=== PATIENT | female | born 1945 | race Caucasian/White ===

== ENCOUNTER 2020-08-21 07:36 | Day surgery (SDC) | payer MEDICARE, OTHER ==
[~2020-08-21] VITALS: Ht 167.6 cm; Wt 84.8 kg
[~2020-08-21 07:36] MED LIST: FERROUS SULFAT325 MG PO; NORVASC5 MG PO
--- NOTE | 2020-08-21 10:38 | NUR ---
08/21/20 1038 Gracie Guevara 1032 PATIENT ARRIVES TO PACU AWAKE BUT DROWSY. DENIES PAIN OR NAUSEA. RESP EVEN AND UNLABORED, NC AT 3 LITERS.
--- NOTE | 2020-08-22 08:49 | OR ---
[facility] [address], [place] [address] Signed DATE OF OPERATION: 08/21/2020 SURGEON: Sangeetha Saldana MD PREOPERATIVE DIAGNOSES: 1. Iron-deficiency anemia (hemoglobin 6.1). 2. Father with stomach cancer. 3. Brother with colon cancer. POSTOPERATIVE DIAGNOSES: 1. Moderate diffuse hemorrhagic gastritis. 2. Small hiatal hernia. 3. 4 mm polyps, proximal right colon, 55 cm, 20 cm, 18 cm, 15 cm and 8 cm (x2). PROCEDURES: 1. EGD with CLOtest and biopsies of the antrum and body of stomach. 2. Colonoscopy with hot biopsy. ESTIMATED BLOOD LOSS: None. INDICATIONS: Leonor is a 75-year-old female, asked to see me for upper and lower endoscopy. She had a barium enema back in her 60s and apparently that was fine. She really does not have any upper or lower GI complaints. However, she was feeling tired and was having to rest every 15 minutes. She had been to her primary care provider and found to be anemic. Her hemoglobin was low at 6.1. Mean cell volume was low at 56. She therefore received 2 units of packed red blood cells. She is now feeling much better. She has been taking iron tablets. She also told me her brother was diagnosed with colon cancer. Her father also had stomach cancer. In the office, I gave Leonor a pamphlet on both upper and lower endoscopy. We reviewed the nature of the two tests along with the risks including, but not limited to gas bloating, crampy abdominal pain, bleeding, perforation requiring surgery, and missed diagnosis. We also reviewed the need for IV conscious sedation. She had expressed understanding and wished to proceed. DESCRIPTION OF PROCEDURE: Leonor was taken into our endoscopy suite and placed in the supine semi-recumbent position. She was given a total of 7 mg of Versed and 175 mcg of fentanyl to cover both cases. The posterior oropharynx was anesthetized with lidocaine spray. A bite block was utilized for the case. The adult gastroscope was introduced and advanced under Electronically Signed By: SANGEETHA SALDANA MD 08/22/20 0849 PATIENT NAME: LEONOR MARINELLI OPERATIVE REPORT DATE OF : 45 REPORT #: [id number] PHYSICIAN: SANGEETHA SALDANA MD PCP: KAYLA VERA MD REPORT IS CONFIDENTIAL AND NOT TO BE RELEASED WITHOUT AUTHORIZATION [facility] [address], [place] [address] Signed direct visualization of camera into the third portion of the duodenum. The duodenum and pyloric channel were unremarkable. However, the stomach showed moderate diffuse hemorrhagic gastritis. No ulcerations. We took a biopsy of the antrum and body of the stomach for pathologic review. An additional biopsy came out of the antrum for H. pylori. Upon retroflexion of scope, she does have just a small hiatal hernia. The scope was withdrawn through the GE junction, which was compliant without stricture. There was really no significant disruption to the Z-line. There was quite very minimal irritation. No Mo's mucosa, no distal esophagitis. The middle and upper esophagus were unremarkable. After this, the gas was suctioned out and the gastroscope removed. Leonor tolerated procedure quite well. Leonor was then rotated into the left lateral decubitus position. She was maintained on IV sedation with Versed and fentanyl. A digital rectal exam was performed and this was unremarkable. She has good sphincter tone. The adult colonoscope was introduced and advanced under direct visualization of camera up into the cecum itself. Her prep was quite good. We could see the appendiceal orifice and the ileocecal valve. We took pictures throughout for photodocumentation. The above-mentioned polyps were easily removed with the help of a hot biopsy forceps. We did not see diverticulosis. Upon retroflexion of scope, really no evidence of any internal hemorrhoids. After this, the gas was suctioned out and the colonoscope removed. Leonor tolerated procedure quite well. RECOMMENDATIONS: I will see Leonor back in my office in 7 to 14 days to review her results. Due to her family history, she will need colonoscopy every 5 years. Sangeetha Saldana MD ALB/MODL /[id number] cc: MD Sangeetha Carpenter MD Electronically Signed By: SANGEETHA SALDANA MD 08/22/20 0849 PATIENT NAME: LEONOR MARINELLI OPERATIVE REPORT DATE OF : 45 REPORT #: [id number] PHYSICIAN: SANGEETHA SALDANA MD PCP: KAYLA VERA MD REPORT IS CONFIDENTIAL AND NOT TO BE RELEASED WITHOUT AUTHORIZATION [address] [address] Signed Copies: KAYLA VERA MD, ANDREW L MD ~ Electronically Signed By: SANGEETHA SALDANA MD 08/22/20 0849 PATIENT NAME: LEONOR MARINELLI AZALIA OPERATIVE REPORT DATE OF : 45 REPORT #: [id number] PHYSICIAN: SANGEETHA SALDANA MD PCP: KAYLA VERA MD REPORT IS CONFIDENTIAL AND NOT TO BE RELEASED WITHOUT AUTHORIZATION
--- NOTE | 2020-08-23 16:45 | PATH ---
[facility] [address], [place] [address] Signed SPECIMEN(S): A ANTRUM/PYLORUS SPECIMEN(S): B BODY SPECIMEN(S): C RECTAL POLYP AT 8 CM SPECIMEN(S): D PROXIMAL ASCENDING POLYP SPECIMEN(S): E COLON POLYP AT 55 CM SPECIMEN(S): F COLON POLYP AT 20 CM SPECIMEN(S): G COLON POLYP AT 18 CM SPECIMEN(S): H COLON POLYP AT 15 CM SPECIMEN SOURCE: A. ANTRUM/PYLORUS B. BODY C. RECTAL POLYP AT 8 CM D. PROXIMAL ASCENDING POLYP E. COLON POLYP AT 55 CM F. COLON POLYP AT 20 CM G. COLON POLYP AT 18 CM H. COLON POLYP AT 15 CM CLINICAL HISTORY: History of anemia. Post-op: Gastritis, hiatal hernia, rectal polyps. MICROSCOPIC DESCRIPTION: Histologic sections of all submitted blocks are examined by light microscopy. These findings, together with the gross examination, support the pathologic diagnosis. FINAL PATHOLOGIC DIAGNOSIS: A. Stomach, antrum/pylorus, biopsy: - Antral mucosa with chronic, active gastritis. - Numerous Helicobacter organisms identified on HE stain. - Negative for dysplasia or malignancy. B. Stomach, body, biopsy: - Oxyntic mucosa with chronic, active gastritis. - Helicobacter organisms identified on HE stain. - Negative for dysplasia or malignancy. C. Rectum, polyp at 8 cm, polypectomy: - Hyperplastic polyp. - Negative for dysplasia or malignancy. D. Colon, proximal ascending, polyp, polypectomy: - Fragments of cauterized hyperplastic polyp. - Negative for dysplasia or malignancy. PATIENT NAME: CHLOE MARINELLI PATHOLOGY DATE OF : 45 REPORT #: [id number] PHYSICIAN: MOIRA LANE PCP: KAYLA VERA MD REPORT IS CONFIDENTIAL AND NOT TO BE RELEASED WITHOUT AUTHORIZATION [facility] [address], [place] [address] Signed E. Colon, polyp at 55 cm, polypectomy: - Colonic mucosa with no histopathologic abnormality. - Negative for dysplasia or malignancy. F. Colon, polyp at 20 cm, polypectomy: - Hyperplastic polyp. - Negative for dysplasia or malignancy. G. Colon, polyp at 18 cm, polypectomy: - Hyperplastic polyp. - Negative for dysplasia or malignancy. H. Colon, polyp at 15 cm, polypectomy: - Colonic mucosa with no histopathologic abnormality. - Negative for dysplasia or malignancy. NAL:cml:C2NR GROSS DESCRIPTION: Eight specimens are received in eight containers, labeled "LB." A. The specimen, labeled "LB, #1," and designated on the requisition "antrum/pylorus," is received in formalin and consists of one porter soft tissue fragment that measures 0.3 cm in greatest dimension. The specimen is entirely submitted in cassette (A1). B. The specimen, labeled "LB, #2," and designated on the requisition "stomach body," is received in formalin and consists of three porter soft tissue fragments that measure 0.3 cm in greatest dimension. The specimen is entirely submitted in cassette (B1). C. The specimen, labeled "LB, #3," and designated on the requisition "rectum polyp at 8 cm," is received in formalin and consists of one porter soft tissue fragment that measures 0.3 cm in greatest dimension. The specimen is entirely submitted in cassette (C1). D. The specimen, labeled "LB, #4," and designated on the requisition "proximal ascending colon polyp," is received in formalin and consists of one porter soft tissue fragment that measures 0.4 cm in greatest dimension. The specimen is entirely submitted in cassette (D1). E. The specimen, labeled "LB, #5," and designated on the requisition "colon polyp at 55 cm," is received in formalin and consists of one porter soft tissue fragment that measures 0.4 cm in greatest dimension. The specimen is entirely submitted in cassette (E1). F. The specimen, labeled "LB, #6," and designated on the requisition "colon polyp at 20 cm," is received in formalin and consists of one porter soft tissue fragment that measures 0.3 cm in greatest dimension. The specimen is entirely submitted in cassette (F1). PATIENT NAME: CHLOE MARINELLI PATHOLOGY DATE OF : 45 REPORT #: [id number] PHYSICIAN: MOIRA LANE PCP: KAYLA VERA MD REPORT IS CONFIDENTIAL AND NOT TO BE RELEASED WITHOUT AUTHORIZATION [facility] [address] [place], [place] [address] Signed G. The specimen, labeled "LB, #7," and designated on the requisition "colon polyp at 18 cm," is received in formalin and consists of one porter soft tissue fragment that measures 0.3 cm in greatest dimension. The specimen is entirely submitted in cassette (G1). H. The specimen, labeled "LB, #8," and designated on the requisition "colon polyp at 15 cm," is received in formalin and consists of one porter soft tissue fragment that measures 0.2 cm in greatest dimension. The specimen is entirely submitted in cassette (H1). Possible minute friable fragment. AT (under the direct supervision of a pathologist) PERFORMING LABORATORY: The technical component was performed by [employer] [facility] [address] (Vendor Management Consultant: Gabriela Boogie MD; CLIA# [id number]). Professional [place] [facility] [place] [address] (CLIA# [id number]). Diagnostician: Danika Aquino MD Pathologist Electronically Signed 08/23/2020 Copies: ~ PATIENT NAME: CHLOE MARINELLI PATHOLOGY DATE OF : 45 REPORT #: [id number] PHYSICIAN: MOIRA PATHOLOGY PCP: KAYLA VERA MD REPORT IS CONFIDENTIAL AND NOT TO BE RELEASED WITHOUT AUTHORIZATION
== END 2020-08-21 11:05 | disposition home or self-care (01) ==
LOC: OPS 07:36 → DS 07:36 → OPS 09:00
PROVIDERS: ATTEND Colon & Rectal Surgery
PROC: 0DBE8ZZ Excision of Large Intestine, Via Natural or Artificial Opening Endoscopic (ICD-10-PCS; 2020-08-21)
PROC: 0DBP8ZZ Excision of Rectum, Via Natural or Artificial Opening Endoscopic (ICD-10-PCS; 2020-08-21)
PROC: 0DB78ZX Excision of Stomach, Pylorus, Via Natural or Artificial Opening Endoscopic, Diagnostic (ICD-10-PCS; principal; 2020-08-21 09:00)
PROC: 0DBK8ZZ Excision of Ascending Colon, Via Natural or Artificial Opening Endoscopic (ICD-10-PCS; 2020-08-21 09:00)
DX: K63.5 Polyp of colon (principal); K62.1 Rectal polyp; K29.50 Unspecified chronic gastritis without bleeding; B96.81 Helicobacter pylori [H. pylori] as the cause of diseases classified elsewhere; K44.9 Diaphragmatic hernia without obstruction or gangrene; Z23 Encounter for immunization; Z80.0 Family history of malignant neoplasm of digestive organs; Z79.899 Other long term (current) drug therapy; I10 Essential (primary) hypertension; E78.5 Hyperlipidemia, unspecified; Z88.5 Allergy status to narcotic agent; Z91.048 Other nonmedicinal substance allergy status
CPT/HCPCS: 86677; 90662; 99153; G0500; J2250; J3010; J7121

== ENCOUNTER 2021-09-18 07:45 | Day surgery (SDC) | payer MEDICARE, OTHER ==
[~2021-09-18] VITALS: Ht 167.6 cm; Wt 90.9 kg
[~2021-09-18 07:45] MED LIST changes: +BAYER CHEWABLE81 MG PO; +CRESTOR10 MG PO
--- NOTE | 2021-09-18 11:12 | NUR ---
09/18/21 1112 Starr Chadwick 1105-PATIENT ARRIVED TO PACU ON 4L NC AWAKE DENIES PAIN OR NAUSEA. NO DRAINAGE TO RIGHT SIDE OF HEAD. SR. IVF INFUSING.
[2021-09-18] MEDS ORDERED: HYDROCODON-ACE1 EA10 PO (11:29)
--- NOTE | 2021-09-19 07:33 | OR ---
[facility] [address] [place], [place] [address] Signed DATE OF OPERATION: 09/18/2021 SURGEON: Sangeetha Saldana MD PREOPERATIVE DIAGNOSIS: Right occipital subcutaneous scalp lesion (2 cm). POSTOPERATIVE DIAGNOSIS: Epidermal inclusion cyst. PROCEDURE: Excision of right occipital epidermal inclusion cyst. ESTIMATED BLOOD LOSS: None. INDICATIONS: Leonor is a 76-year-old female asked to see me for a subcutaneous mass on the right occipital scalp. She told me it has been there for years. It has been continuing to increase in size. It is at least 2 cm in diameter. It has been causing her pain. She has difficulty putting her head back on her pillow or her wheelchair and in the car and so forth. She had cut her own hair for many many years. She finally went to a chair mechanic. The chair mechanic was a bit alarmed regarding this lesion. She recommended Leonor have it removed. Leonor had been to her primary care provider. She was then asked to see me as a local general surgeon. She told me she has never had it drained or been infected. In the office, I explained to Leonor the nature of the surgery required to remove that lesion. She understands this is best done under excellent operating room with cautery due to the amount of blood flow to the scalp. She understands this is a day surgery and she will go home afterwards. There is risk to the surgery including, but not limited to bleeding, infection, scarring, change in contour of the skin as well as possible need for additional surgeries based on pathology results and recurrent lesions in the same or other locations. She had expressed understanding and wished to proceed. DESCRIPTION OF PROCEDURE: I met with Leonor in our preop area. We both agreed and could easily identify the large lesion in the right occipital scalp. It was marked appropriately. After this, Leonor was taken in the operating room and placed in the left lateral decubitus position under monitored anesthesia care. She had been prepped and draped in the usual sterile fashion. She was given preoperative antibiotics along with subcutaneous Electronically Signed By: SANGEETHA SALDANA MD 09/19/21 0733 PATIENT NAME: LEONOR MARINELLI OPERATIVE REPORT DATE OF : 45 REPORT #: [id number] PHYSICIAN: SANGEETHA SALDANA MD PCP: KAYLA VERA MD REPORT IS CONFIDENTIAL AND NOT TO BE RELEASED WITHOUT AUTHORIZATION [facility] [address] [place], [place] [address] Signed heparin. SCDs were utilized. Local anesthetic was injected around and over the lesion. An incision was made very carefully over the lesion with a 15 blade knife. With careful dissection, we uncovered a large epidermal inclusion cyst. We went around the lesion bluntly and with our needle-tip cautery until it was completely free. The entire cyst and cyst wall were excised and passed off the field. After this, the dermis was reapproximated with interrupted 5-0 subcuticular Monocryl sutures. The skin edges were reapproximated with a running 5-0 fast absorbing plain gut suture. No dressing was applied. Leonor was then awakened from her anesthesia, rotated into the supine position and taken into recovery room in stable condition. Sangeetha Saldana MD ALB/MODL /[id number] cc: MD Sangeetha Carpenter MD Copies: KAYLA VERA MD, ANDREW L MD ~ Electronically Signed By: SANGEETHA SALDANA MD 09/19/21 0733 PATIENT NAME: LEONOR MARINELLI OPERATIVE REPORT DATE OF : 45 REPORT #: [id number] PHYSICIAN: SANGEETHA SALDANA MD PCP: KAYLA VERA MD REPORT IS CONFIDENTIAL AND NOT TO BE RELEASED WITHOUT AUTHORIZATION
--- NOTE | 2021-09-20 17:53 | PATH ---
[facility] [address] [place], [place] [address] Signed SPECIMEN(S): A RIGHT OCCIPITAL CYST SPECIMEN SOURCE: A. RIGHT OCCIPITAL CYST CLINICAL HISTORY: Excision, right occipital subcu mass. FINAL PATHOLOGIC DIAGNOSIS: Cyst, right occipital: - Trichilemmal (pilar) cyst. TWK:caw:C2NR MICROSCOPIC EXAMINATION: The lesion is a benign trichilemmal cyst without atypical features. GROSS DESCRIPTION: The specimen, labeled "LB, A," and designated on the requisition "right occipital cyst," is received in formalin and consists of a porter intact cystic fragment measuring 3.0 x 2.6 x 1.6 cm. Fragment is serially sectioned revealing yellow-porter caseous cystic material and a public utilities sales representative section is submitted in cassette A1. AT (under the direct supervision of a pathologist) The Gross Description was prepared using a voice recognition system. The report was reviewed for accuracy; however, sound-alike word errors, addition and/or deletions may occur. If there is any question about this report, please contact Client Services. PERFORMING LABORATORY: The technical component was performed by [facility], [address] [place] [id number] (Warp Hanger: Gabriela Boogie MD; CLIA# [id number]). The professional interpretation [facility], [address] [place] [address]. Diagnostician: Chaim Whitaker MD Pathologist Electronically Signed 09/20/2021 Copies: PATIENT NAME: CHLOE MARINELLI PATHOLOGY DATE OF : 45 REPORT #: [id number] PHYSICIAN: MOIRA PATHOLOGY PCP: KAYLA VERA MD REPORT IS CONFIDENTIAL AND NOT TO BE RELEASED WITHOUT AUTHORIZATION [address] [address] Signed ~ PATIENT NAME: CHLOE MARINELLI PATHOLOGY DATE OF : 45 REPORT #: [id number] PHYSICIAN: MOIRA PATHOLOGY PCP: KAYLA VERA MD REPORT IS CONFIDENTIAL AND NOT TO BE RELEASED WITHOUT AUTHORIZATION
== END 2021-09-18 11:50 | disposition home or self-care (01) ==
LOC: DS 07:45
PROVIDERS: ATTEND Colon & Rectal Surgery
PROC: 0HB0XZZ Excision of Scalp Skin, External Approach (ICD-10-PCS; principal; 2021-09-18 09:45)
DX: L72.12 Trichodermal cyst (principal); Z88.5 Allergy status to narcotic agent
CPT/HCPCS: J0690; J1644; J2001; J2405; J2704; J3010; J7121